=== PATIENT | male | born 1980 | race Caucasian/White ===

== ENCOUNTER 2021-12-29 22:52 | Emergency (ER) | payer BC, SELFPAY ==
[2021-12-29 23:03] VITALS: BP 130/89; PULSE 104; RESP 16; TEMP 36.8; O2SAT 96
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
== END 2021-12-30 02:21 | disposition home or self-care (01) ==
PROVIDERS: Emergency Provider Emergency Medicine; PCP Family Medicine
DX: S00.03XA Contusion of scalp, initial encounter (principal); S00.01XA Abrasion of scalp, initial encounter; V86.55XA Driver of 3- or 4- wheeled all-terrain vehicle (ATV) injured in nontraffic accident, initial encounter
CPT/HCPCS: 99283